=== PATIENT | female | born 1975 | race American Indian/Alaskan Native ===

== ENCOUNTER 2016-12-30 10:55 | Outpatient (CLI) | payer MEDICAID ==
[2016-12-30 11:42] LABS: Anion Gap 18 mmol/L; Blood Urea Nitrogen 14 mg/dL (7-17); Calcium 8.5 mg/dL (8.4-10.2); Carbon Dioxide 24 mmol/L (22-30); Chloride 102.4 mmol/L (98-107); Glucose 83 mg/dL (65-100); Potassium 3.7 mmol/L (3.6-5.0); Sodium 141 mmol/L (137-145)
[2016-12-30] MEDS ORDERED: NACL ONE (12:21)
--- NOTE | 2016-12-30 13:22 | Cat Scan Report ---
CTA chest: PA protocol. History: Chest pain. Findings: No evidence of the kidneys or pulmonary embolism. No pleural or pericardial effusion. No mediastinal mass or adenopathy. Normal lung parenchyma. No discrete nodularity or consolidation. Impression: Essentially negative CTA chest.
== END 2016-12-30 10:56 | disposition home or self-care (01) ==
LOC: CT 10:55
PROVIDERS: ATTEND Internal Medicine
DX: R07.89 Other chest pain (principal); R06.02 Shortness of breath; Z86.711 Personal history of pulmonary embolism
CPT/HCPCS: 36415; 71275; 80048; Q9967

== ENCOUNTER 2017-03-01 12:41 | Outpatient (CLI) | payer MEDICAID ==
[2017-03-01 13:33] LABS: Alanine Aminotransferase 35 units/L (7-56); Albumin 4.5 g/dL (3.9-5); Albumin/Globulin Ratio 1.6 %; Alkaline Phosphatase 90 units/L (35-129); Anion Gap 18 mmol/L; BUN/Creatinine Ratio 22; Blood Urea Nitrogen 13 mg/dL (7-17); Calcium 8.6 mg/dL (8.4-10.2); Carbon Dioxide 24 mmol/L (22-30); Chloride 100.8 mmol/L (98-107); Glucose 99 mg/dL (65-100); Lactate Dehydrogenase 568 units/L (91-180); Potassium 3.8 mmol/L (3.6-5.0); Sodium 139 mmol/L (137-145); Total Protein 7.4 g/dL (6.3-8.2)
[2017-03-01 14:18] LABS: White Blood Count 11.7 K/mm3 (4.5-11.0)
[2017-03-01 14:23] LABS: Hematocrit TNR % (30.3-42.9); Hemoglobin 9.7 gm/dl (10.1-14.3); Mean Corpuscular HGB Conc TNR % (30-34); Mean Corpuscular Hemoglobin TNR pg (28-32); Mean Corpuscular Volume TNR fl (79-97); Red Blood Count TNR M/mm3 (3.65-5.03); Red Cell Distribution Width TNR % (13.2-15.2)
[2017-03-01 14:26] LABS: Platelet Count TNR K/mm3 (140-440)
[2017-03-01 15:10] LABS: Anisocytosis 3+; Basophils % (Manual) 0 % (0.0-1.8); Blastocytes % (Manual) 0 %; Diff Status Complete; Microcytosis 3+
[2017-03-01 15:11] LABS: Schistocytes 1+; Spherocytes 3+
[2017-03-01 15:29] LABS: Reticulocyte % 8.91 % (0.78-2.58)
== END 2017-03-01 12:42 | disposition home or self-care (01) ==
LOC: LAB 12:41
PROVIDERS: ATTEND Internal Medicine Critical Care Medicine
DX: D64.9 Anemia, unspecified (principal); R79.89 Other specified abnormal findings of blood chemistry
CPT/HCPCS: 36415; 80053; 83010; 83615; 85007; 85025; 85045